=== PATIENT | female | born 1950 | race Caucasian/White ===

== ENCOUNTER 2017-11-25 11:28 | Emergency (ER) | payer MEDICARE, OTHER ==
--- NOTE | 2017-11-25 12:27 | EDM.PDOC ---
ED HPI GENERAL MEDICAL PROBLEM - General Chief Complaint: ENT Problem Stated Complaint: HEAD CONGESTION Time Seen by Provider: 11/25/17 11:48 Source of Information: Reports: Patient History Limitations: Reports: No Limitations - History of Present Illness INITIAL COMMENTS - FREE TEXT/NARRATIVE: Patient is a 67-year-old female presents ED complaining of sinus congestion, runny nose, postnasal drip, tinnitus, mild generalized headache, and intermittent dizziness. Patient states she's had these symptoms for the past 1.5 months. States she has a history of seasonal allergies and normally takes Zyrtec and Flonase. She stopped taking the Zyrtec quite some time ago. Continue to take the Flonase daily. She was evaluated this past Thursday at the [facility] here in [place] and placed on Augmentin and also instructed to take Claritin. She's had some loose stools described as dark in color thus she was concerned about developing C. difficile. She has a history of C. difficile 2 years ago. Since stopping the antibiotic yesterday the diarrhea has subsided. She takes a daily or probiotic. Continues to have sinus complaints as listed above. She has not been on antibiotics for quite some time. She's been taking Tylenol for discomfort. No NSAIDs noted. She has no history of GI bleed. She does smoke half pack to a pack daily. There has been no recent sick exposures. She denies any fevers. Cough is chronic unchanged. She was no shortness of breath, chest pain, sore throat, stiff neck, rash, or any additional complaints. She is eating and drinking with no issues. Headache Pain Score (Numeric/FACES): 5 - Related Data Allergies Allergy/AdvReac Type Severity Reaction Status Date / Time diazepam [From Valium] AdvReac Intermediate Hallucinati Verified 12/04/15 09:18 ons amoxicillin [Amoxicillin] AdvReac Mild Stomach Verified 12/04/15 09:18 Upset Home Meds: Home Meds Colestipol HCl 1 gm PO ONETIME #21 tablet 11/07/13 [Rx] Past Medical History HEENT History: Reports: Impaired Vision Other Cardiovascular History: Mitral valve prolapse Gastrointestinal History: Reports: GERD Genitourinary History: Reports: UTI, Recurrent [employer] WORKER History: Reports: Endometriosis Psychiatric History: Reports: Anxiety Other Psychiatric History: Anxiety r/t health issues with her mitral valve Oncologic (Cancer) History: Reports: Bladder - Infectious Disease History Infectious Disease History: Reports: C-Difficile - Past Surgical History Female Surgical History: Reports: Hysterectomy Social & Family History - Family History Family Medical History: Noncontributory - Tobacco Use Smoking Status *Q: Current Every Day Smoker Years of Tobacco use: 48 Packs/Tins Daily: 1 - Caffeine Use Caffeine Use: Reports: Coffee Other Caffeine Use: Daily - Recreational Drug Use Recreational Drug Use: No ED ROS ENT - Review of Systems Review Of Systems: ROS reveals no pertinent complaints other than HPI. ED EXAM, ENT - Physical Exam Exam: See Below Exam Limited By: No Limitations General Appearance: Alert, WD/WN, No Apparent Distress Eye Exam: Bilateral Eye: Normal Inspection, PERRL Ears: Normal External Exam, Normal Canal, Hearing Grossly Normal, Normal TMs Nose: Clear Rhinorrhea, Nasal Discharge, Nasal Swelling, Injected Turbinates. No: Nasal Deformity Mouth/Throat: Normal Inspection, Normal Gums, Normal Lips, Normal Oropharynx, Normal Teeth Head: Atraumatic, Normocephalic Neck: Normal Inspection, Supple, Non-Tender, Full Range of Motion. No: Lymphadenopathy (L), Lymphadenopathy (R) Respiratory/Chest: No Respiratory Distress, Lungs Clear, Normal Breath Sounds, No Accessory Muscle Use, Chest Non-Tender Cardiovascular: Normal Peripheral Pulses, Regular Rate, Rhythm, No Murmur ( Obvious) GI/Abdominal: Normal Bowel Sounds, Soft, Non-Tender, No Organomegaly, No Distention Back: Normal Inspection Extremities: Normal Inspection, Normal Range of Motion, Non-Tender, No Pedal Edema, Normal Capillary Refill Neurological: Alert, Oriented, CN II-XII Intact, Normal Cognition, No Motor/ Sensory Deficits Psychiatric: Normal Affect, Normal Mood Skin: Warm, Dry, Intact, Normal Color, No Rash Course - Vital Signs Last Recorded V/S: Last Vital Signs Temp 98.8 F 11/25/17 11:31 Pulse 59 L 11/25/17 11:31 Resp 17 11/25/17 11:31 BP 155/74 H 11/25/17 11:31 Pulse Ox 96 11/25/17 11:31 - Re-Assessments/Exams Free Text/Narrative Re-Assessment/Exam: At this point patient does have sinusitis. I do think she would benefit from taking a antibiotic. She is concerned about developing C. difficile. I did advise that any antibiotic may increase her risk of developing C. difficile. In addition diarrhea should subside after discontinuing is a patient and with taking the probiotic. Again patient is adamant about not taking any antibiotic. I've instructed her to continue taking Flonase, Claritin, nasal saline spray to each nares every hour while awake, and Afrin 1 spray twice a day for no longer than 3 days. I had a long discussion with her about stopping smoking since this causes chronic inflammation. Patient does have appointment PCP scheduled for this coming Thursday. She may need to see ENT specialist for further evaluation. But at this point I do believe she would benefit from antibiotic and quitting smoking. Departure - Departure Time of Disposition: 12:27 Disposition: Home, Self-Care 01 Condition: Good Clinical Impression: Sinusitis Qualifiers: Sinusitis location: unspecified location Chronicity: subacute Qualified Code(s) : J01.90 - Acute sinusitis, unspecified - Discharge Information Instructions: Sinusitis, Adult, [id number], Sinus Rinse, [id number] Referrals: Mela Nice, [employer] [Primary Care Provider] - Additional Instructions: Continue utilizing the Flonase and Claritin as prescribed. Suggest using Afrin 1 spray twice a day for no longer than 3 days. Aleve 1-2 tabs twice a day to treat any discomfort. May utilize Tylenol between these doses again for pain as well. In the long run I do believe stopping smoking would over the most benefit . Suggest taking the Augmentin as prescribed with [id number] probiotic. Please continue to keep appointment with PCP as scheduled for this coming Thursday. ENT evaluation may be required. This can be set up by PCP. Please return back to the ED if you develop any new or worsening symptoms.
== END 2017-11-25 12:35 | disposition home or self-care (01) ==
LOC: JD.ED 11:28
DX: J01.90 Acute sinusitis, unspecified (principal); F17.210 Nicotine dependence, cigarettes, uncomplicated; Z88.1 Allergy status to other antibiotic agents; Z88.8 Allergy status to other drugs, medicaments and biological substances
CPT/HCPCS: 99283